=== PATIENT | male | born 1940 | race Caucasian/White ===

== ENCOUNTER 2017-09-29 07:26 | Day surgery (SDC) | payer MEDICARE, OTHER, SELFPAY ==
[2017-09-29] VITALS (8 sets, daily range): BP systolic 92–164; BP diastolic 47–107; PULSE 61–69; RESP 16; TEMP 36.2–36.6; O2SAT 97–100; BMI 24.5
--- NOTE | 2017-09-29 08:52 | PCM.OPRPT ---
Problem List (1) Screening for intestinal cancer Status: Acute Report of Operation Date of Procedure: 09/29/17 Pre-Operative Diagnosis: Family history of colon cancer in his father Post-Operative Diagnosis: Pancolonic diverticulosis. Grade 2 internal hemorrhoids Surgery/Procedure Performed:: Colonoscopy Description of Surgical Findings:: Timeout and informed consent was obtained. 77-year-old gentleman was taken to the endoscopy suite. He was placed in a left lateral decubitus position. Throughout the procedure in aliquots he received a total of 100 mg of Demerol and 5 mg of Versed is intravenous sedation. Digital rectal exam performed. Normal anal tone. Mild internal hemorrhoids. 2+ smooth uniform prostate. No mass lesions. Flexible colonoscope inserted the rectum advanced through a somewhat tortuous sigmoid colon the scope was then advanced through the splenic flexure there colon was rather elongated needed to slowly progress through the transverse colon and then with transabdominal pressure the scope was advanced to the cecum. Bowel prep was good. The cecum and ileocecal valve area was nicely achieved. The scope then was carefully withdrawn from the ascending transverse descending and sigmoid colon. Pancolonic diverticulosis was identified. I felt that I had good visualization of the bowel. There was tortuosity noted. The scope was withdrawn to the rectum retroflex the anorectal verge inspected mild hemorrhoidal changes noted no active bleeding. Excess fluid and air was aspirated free the procedure was completed with the patient tolerating it well. Impression Pancolonic diverticulosis. Based upon family history might consider follow-up colonoscopy at 5 years pending general health at that time. Cc: Dr. Clement The scope was inserted 0832. The cecum was reached at 0842. The procedure was completed at 0848. Lm Cervantes M.D., F.A.C.S. Type of Anesthesia:: IV Sedation
--- NOTE | 2017-10-02 10:09 | PCM.HP.STD ---
Problem List (1) Screening for intestinal cancer Status: Acute History of Present Illness Date of Admission: 09/29/17 The patient is a 77 year old M who presents for screening colonoscopy. The patient does have a family history of her father had colon cancer. He has had 2 previous colonoscopies both were unremarkable. His previous colonoscopy was January 10, [address] Luis Felipe Dickerson. 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 Diverticulosis. Recommendations for follow-up colonoscopy at 5 years. The patient otherwise is enjoying good health. He denies recent hospitalizations. He denies bright red blood per rectum or melena. No abdominal pain. No unexpected weight loss. Past Medical History Medical History: Medical History Screening for intestinal cancer (Acute) Z12.10 Allergies No Known Allergies Allergy (Verified 08/21/17 14:09) Home Medications: Ambulatory Orders Medication Instructions Recorded Cod Liver Oil 30 ml PO DAILY 12/11/15 Multivitamins,Therapeutic 1 tab PO DAILY 12/11/15 [Multivitamin] Sennosides/Docusate Sodium [Stool 1 ea PO DAILY 12/11/15 Softener-Laxative Tablet] aspirin 81 mg tablet,delayed 81 mg PO QDAY 08/21/17 release Surgical History: Surgical History (Last Updated 08/21/17 @ 14:07 by Rosa Garcias) H/O colonoscopy Z98.890 2012 S/P appendectomy Z90.49 S/P laparoscopic cholecystectomy Z90.49 S/P tonsillectomy Z90.89 Status post knee surgery Z98.890 Smoking Status: Never smoker Review of Systems Constitutional: Denies: Anorexia Eyes: Denies: Blurred vision Cardiovascular: Denies: Chest Pain Respiratory: Denies: Cough Gastrointestinal: Denies: Abdominal Pain Neurological: Denies: Balance problems Endocrine: Denies: Change in Body Habitus VTE Information - Inpt Only VTE Present on Admission: No - Physical Exam General: Alert, Oriented x3, Cooperative, No apparent distress HEENT: Atraumatic Oral: Moist Mucosa Neck: Supple Lungs: Clear to auscultation Cardiovascular: Regular rate, Regular Rhythm Abdomen: Bowel Sounds Present, Soft, Non Tender Extremities: No clubbing Skin: No rashes Musculoskeletal: No Tenderness to Palpation of Joints or Extremities Vital Signs Temp Pulse Resp BP Pulse Ox 97.2 F L 63 16 98/47 L 98 09/29/17 09:10 09/29/17 09:10 09/29/17 09:10 09/29/17 09:10 09/29/17 09:10 Oxygen Delivery Method Room Air Weight: 188 lb Body Mass Index (BMI) 24.5 Assessment/Plan All Active Problems Screening for intestinal cancer (Acute) 77-year-old gentleman who enjoys good health. I am recommending to him a colonoscopy with possible biopsy or polypectomy is indicated. He has had an opportunity to ask and have questions answered. I anticipate proceeding with monitored anesthesia care. He concurs and schedules appropriately. Lm Cervantes M.D., F.A.C.S. This was a delayed dictation as I was notified that the previous history and physical was outdated
== END 2017-09-29 09:40 | disposition home or self-care (01) ==
LOC: EN 07:27 → AC 07:27
PROVIDERS: Family Provider Family Medicine; PCP Family Medicine; Visit Provider Surgery
PROC: 0DJD8ZZ Inspection of Lower Intestinal Tract, Via Natural or Artificial Opening Endoscopic (ICD-10-PCS; CPT 45378; principal; 2017-09-29 08:25)
DX: Z12.11 Encounter for screening for malignant neoplasm of colon (principal); K57.90 Diverticulosis of intestine, part unspecified, without perforation or abscess without bleeding; K64.8 Other hemorrhoids; Z79.82 Long term (current) use of aspirin; Z79.899 Other long term (current) drug therapy; Z80.0 Family history of malignant neoplasm of digestive organs
CPT/HCPCS: G0105; 99152; 99153; J7120

== ENCOUNTER → 2020-01-07 06:20 | Outpatient (CLI) | payer MEDICARE, SELFPAY ==
[2019-12-23 09:37] VITALS: BMI 24.2
--- NOTE | 2020-01-07 06:23 | ECHOD_ITS ---
Reason For Study: CP Procedure This was a 2D Doppler, Color Flow transthoracic echocardiogram. Contrast injection was performed. Exam performed in department. Left Ventricle Normal LV size. Left ventricular systolic function is normal. The estimated ejection fraction is 65 %. No evidence for diastolic dysfunction. No regional wall motion abnormalities noted. Right Ventricle Normal RV size. Normal systolic function. Atria Normal left atrium. Normal right atrium. Hypermobile atrial septum. Bubble contrast study negative for right to left interatrial shunt. Mitral Valve There is no mitral annular calcification. Mild diffuse mitral valve thickening. Mild mitral valve prolapse, posterior leaflet. Mild (1+) mitral valve insufficiency. Tricuspid Valve Normal tricuspid valve. Mild tricuspid valve insufficiency. Right ventricular systolic pressure estimated to be 24 mmHg. Aortic Valve Trisinus/trileaflet aortic valve. Normal aortic valve. Pulmonic Valve The pulmonic valve is not well visualized. Trivial pulmonic valve insufficiency. Great Vessels Normal sized aortic root. Pericardium/Pleural No pericardial effusion. Medication 22 gauge I.V. with prn adaptor inserted into right arm. Performed a rapid injection of agitated mix of 9 cc saline and 1cc air to assess for atrial septal defect. MMode/2D Measurements & Calculations LVIDd: 4.6 cm IVSd: 1.2 cm Ao root diam: 3.3 cm LVIDs: 2.6 cm LVPWd: 1.2 cm FS: 43.2 % LAV(MOD-bp): 39.6 ml LA A4 area: 13.4 cm2 LA dimension(2D): 3.4 cm LAV(MOD-bp) Indexed: 19.1 ml/m2 LAV(MOD-sp2): 43.2 ml LAV(MOD-sp4): 30.8 ml RA A4 area: 16.3 cm2 Time Measurements MV dec time: 0.18 sec Doppler Measurements & Calculations MV E max kavon: 43.7 cm/sec Lat Peak E' Kavon: 5.4 cm/sec Med Peak E' Kavon: 5.4 cm/sec MV A max kavon: 93.3 cm/sec E/E' lat: 8.1 E/E' med: 8.2 MV E/A: 0.47 MV V2 max: 95.4 cm/sec MV P1/2t max kavon: 50.7 cm/sec Ao V2 max: 110.0 cm/sec MV max P.6 mmHg MV P1/2t: 91.4 msec Ao max P.8 mmHg MV V2 mean: 47.4 cm/sec MV dec slope: 162.4 cm/sec2 MV mean P.1 mmHg MV V2 VTI: 19.6 cm MVA(P1/2t): 2.4 cm2 LV V1 max: 96.0 cm/sec PA V2 max: 99.2 cm/sec TR max kavon: 227.6 cm/sec LV V1 max P.7 mmHg TR max P.8 mmHg Interpretation Summary Left ventricular systolic function is normal. The estimated ejection fraction is 65 %. Mild diffuse mitral valve thickening. Mild mitral valve prolapse, posterior leaflet Mild (1+) mitral valve insufficiency. Mild tricuspid valve insufficiency. Trivial pulmonic valve insufficiency. Hypermobile atrial septum. Bubble contrast study negative for right to left interatrial shunt. Right ventricular systolic pressure estimated to be 24 mmHg. No evidence for diastolic dysfunction. Ordering Physician: Sonu Carl Referring Physician: KEN BUTLER Performed By: Jude Fleming RCS
--- NOTE | 2020-01-07 07:47 | STRESSREP_ITS ---
Stress Test Report Date: 01-07-2020 Procedure: Exercise tolerance test/imaging study Indications: Chest pain/precordial chest pain/left-sided chest pain Consent: Per the patient Procedure: The patient exercised on a Catrachito protocol for 6 minutes completing Stage II achieving a peak heart rate of 155 bpm (110% predicted maximal heart rate) with a peak blood pressure 188/94 mmHg and a peak MET capacity of 7 METs. The baseline ECG demonstrated sinus rhythm. The peak exercise ECG demonstrated somatic/motion artifact with no obvious ECG changes. There were no cardiac dysrhythmias pretest, during exercise, or recovery. The functional capacity was considered good. There was no complaint of chest discomfort during exercise or recovery. The examination was discontinued secondary to dyspnea. Impression: 1. Technically adequate (percent predicted maximal heart rate greater than 85%) exercise tolerance test 2. Peak exercise ECG somatic/motion artifact with no obvious ECG changes 3. There were no cardiac dysrhythmias pretest, during exercise, or recovery 4. Nuclear images pending Myocardial perfusion imaging study: Technique: The patient was injected with 11.3 mCi of technetium 99m Cardiolite and subsequently rest SPECT Cardiolite nuclear imaging was obtained in the horizontal long, vertical long, and short axis views. The patient exercised on a Catrachito protocol for 6 minutes completing Stage II achieving a peak heart rate of 155 bpm (110% predicted maximal heart rate) with a peak blood pressure 188/94 mmHg and a peak MET capacity of 7 METs. The patient was injected with 33.8 mCi of technetium 99m Cardiolite and subsequently stress SPECT Cardiolite nuclear imaging was obtained in the horizontal long, vertical long, and short axis views. A gated Cardiolite study at peak stress was obtained. Interpretation: Rest and stress SPECT Cardiolite nuclear imaging status post realignment, normalization, and attenuation correction, demonstrates the appearance of relative uniform tracer uptake and myocardial perfusion appearing within normal limits. There is end systolic thickening and brightening. The gated Cardiolite study demonstrates myocardial thickening and inward wall motion. The reported LVEF is 76%. Impression: 1. Rest and stress SPECT Cardiolite nuclear imaging demonstrate relative uniform tracer uptake and myocardial perfusion appearing within normal limits. 2. The gated Cardiolite study reports an LVEF of 76%. This note was generated with [employer] software. It may contain incorrect words, spelling, and punctuation that were not noted in checking the note before signing.
== END ==
PROVIDERS: PCP Student in an Organized Health Care Education/Training Program; Referring Provider Internal Medicine Cardiovascular Disease; Visit Provider Internal Medicine Cardiovascular Disease
DX: R07.9 Chest pain, unspecified (principal); R07.2 Precordial pain; I34.1 Nonrheumatic mitral (valve) prolapse; I27.20 Pulmonary hypertension, unspecified; E78.2 Mixed hyperlipidemia
CPT/HCPCS: 78452; 93017; 93306; A9500; A4216

== ENCOUNTER → 2020-06-25 16:03 | Outpatient (CLI) | payer MEDICARE, SELFPAY ==
[2019-12-23 09:37] VITALS: BMI 24.2
[2020-06-25 18:23] LABS: PSA,Total- Diagnostic 3.03 ng/mL (0.0-4.0)
== END ==
PROVIDERS: PCP Student in an Organized Health Care Education/Training Program; Referring Provider Nurse Practitioner Adult Health; Visit Provider Nurse Practitioner Adult Health
DX: N40.3 Nodular prostate with lower urinary tract symptoms (principal)
CPT/HCPCS: 36415; 84153

== ENCOUNTER → 2021-01-05 07:02 | Outpatient (CLI) | payer MEDICARE, SELFPAY ==
--- NOTE | 2021-01-05 08:44 | STRESSREP_ITS ---
Stress Test Report Date: 01-05-2021 Procedure: Exercise tolerance test/imaging study Indications: Chest pain; mitral valve prolapse; hyperlipidemia Consent: Per the patient Procedure: The patient exercised on a Catrachito protocol for 6 minutes and 30 completing Stage II and 30 seconds of Stage III achieving a peak heart rate of 141 bpm (101% predicted maximal heart rate) with a peak blood pressure 182/78 mmHg and a peak MET capacity of 8 METs. The baseline ECG demonstrated normal sinus rhythm. The peak exercise ECG demonstrated somatic/motion artifact with no obvious ECG changes. There were no cardiac dysrhythmias pretest, during exercise, or recovery. The functional capacity was considered good. There was no complaint of chest discomfort during exercise or recovery. The examination was discontinued secondary to dyspnea. Impression: 1. Technically adequate (percent predicted maximal heart rate greater than 85%) exercise tolerance test 2. Peak exercise ECG with somatic/motion artifact with no obvious ECG changes 3. There were no cardiac dysrhythmias pretest, during exercise, or recovery 4. Nuclear images pending Myocardial perfusion imaging study: Technique: The patient was injected with 11.9 mCi of technetium 99m Cardiolite and subsequently rest SPECT Cardiolite nuclear imaging was obtained in the horizontal long, vertical long, and short axis views. The patient exercised on a Catrachito protocol for 6 minutes and 30 completing Stage II and 30 seconds of Stage III achieving a peak heart rate of 141 bpm (101% predicted maximal heart rate) with a peak blood pressure 182/78 mmHg and a peak MET capacity of 8 METs. The patient was injected with 33.6 mCi of technetium 99m Cardiolite and subsequently stress SPECT Cardiolite nuclear imaging was obtained in the horizontal long, vertical long, and short axis views. A gated Cardiolite study at peak stress was obtained. Interpretation: Rest and stress SPECT Cardiolite nuclear imaging status post realignment, normalization, and attenuation correction, demonstrates the appearance of an area of diminished myocardial perfusion/tracer uptake in portions of the basal inferoseptal/inferior segments which appear to be somewhat more prominent following stress as opposed to rest. There is end systolic thickening and brightening. The gated Cardiolite study demonstrates myocardial thickening and inward wall motion. The reported LVEF is 71%. Impression: 1. Rest and stress SPECT Cardiolite nuclear imaging demonstrate myocardial perfusion changes potentially compatible with an area of previous myocardial injury/infarction involving portions of the basal inferior septal/inferior segments with post stress images potentially compatible with an element of laura- infarct related myocardial ischemia, however, contribution from soft tissue attenuation/artifact cannot necessarily excluded. 2. The gated Cardiolite study reports an LVEF of 71%. This note was generated with [employer] software. It may contain incorrect words, spelling, and punctuation that were not noted in checking the note before signing.
== END ==
PROVIDERS: PCP Student in an Organized Health Care Education/Training Program; Referring Provider Nurse Practitioner Gerontology; Visit Provider Nurse Practitioner Gerontology
DX: R07.9 Chest pain, unspecified (principal); I34.1 Nonrheumatic mitral (valve) prolapse; E78.5 Hyperlipidemia, unspecified
CPT/HCPCS: 78452; 93017; A9500

== ENCOUNTER 2021-07-06 11:34 | Observation (INO) | payer MEDICARE, SELFPAY ==
[2021-06-30 14:58] LABS: Absolute Lymphocyte Count 2.74 X10^3/uL (0.83-4.51); Absolute Neutrophil Count 2.9 X10^3/uL (2.0-7.7); Basophil# 0.04 X10^3/uL; Basophil% 0.6 % (0-1); Eosinophil# 0.09 X10^3/uL; Eosinophils% 1.4 % (0-5); Hematocrit 41.5 % (40-54); Hemoglobin 13.5 g/dL (13.0-16.5); Lymphocyte # 2.74 X10^3/ul (0.83-4.51); Lymphocyte % 43.4 % (19-41); Mean Corp Hgb Conc 32.5 g/dL (32-36); Mean Corpuscular Hgb 30.5 pg (27.0-32.0); Mean Corpuscular Volume 93.7 fL (80-94); Mean Platelet Vol. 9.3 fl (6.2-12.0); Monocyte# 0.51 X10^3/uL; Monocyte% 8.1 % (0-10); NRBC Flagged by Analyzer 0 % (0-5); Neutrophil # 2.91 X10^3/uL (2.7-7.7); Neutrophil % 46.2 % (47-70); Platelet Count 206 K/mm3 (150-450); RBC Distribution Width CV 13.5 % (11.6-14.6); RBC Distribution Width SD 46.3 fl (35.1-43.9); Red Blood Count 4.43 M/mm3 (4.6-6.2); White Blood Count 6.3 K/mm3 (4.4-11.0)
[2021-06-30 15:09] LABS: International Normalized Ratio 1.2; Partial Thromboplast Time 31.1 Seconds (24.1-36.2); Prothrombin Time (Protime)PT. 14.5 SECONDS (11.7-14.9)
[2021-06-30 15:24] LABS: Anion Gap 4 (5-15); BUN 21 mg/dL (7-18); BUN/Creat Ratio 20.8 RATIO (10-20); Calcium,Total 8.8 mg/dL (8.5-10.1); Chloride 107 mmol/L (98-107); Creatinine, Serum 1.01 mg/dL (0.70-1.30); EST Glomerular Filtration Rate 75 mL/min (>60); Est Glom Filt Rate - Afr Amer 91 mL/min (>60); Glucose 108 mg/dL (74-106); Potassium 4.2 mmol/L (3.5-5.1); Sodium Level 142 mmol/L (136-145)
[2021-07-05 09:18] VITALS: BMI 23.7
--- NOTE | 2021-07-05 13:04 | HP.PCM_ITS ---
History and Physical Date of Admission: 07/06/21 [facility] [address] [place] [address] [phone] OFFICE VISITDate of Service: 06/30/21 MR#:[id number]: DAX CAPELLAN LRep #:[id number] Provider: BRIGHT Grayson/Sex: 81/M [facility] HPI History of Present Illness Surgical H&P: Yes Details: This is an 81-year-old white male who presents today for outpatient cardiovascular follow-up of an abnormal stress nuclear imaging study based upon concerns of an abnormal ECG superimposed his previous history of MVP/MR. He has a history of precordial chest discomfort superimposed upon a history of mitral valve prolapse and a report of pulmonary hypertension as well as hyperlipidemia. He has previously been followed by Dr. Van Shukla during which time he has undergone noninvasive studies including transthoracic echocardiogram and an exercise tolerance test/nuclear imaging study as well as he states a remote diagnostic cardiac catheterization performed in the at [facility] in [place], [place]. Based upon his most recent noninvasive studies performed in July 2017 he had a transthoracic echocardiogram which stated that his left ventricle was normal with an LVEF of 55 to 60% with the mi tral valve having mild thickening and systolic bowing and systolic anterior motion and mild contractile dysfunction of the papillary muscles with mild MR, the aortic valve being sclerotic, and the RV systolic pressure being reported at 22 mmHg. At that time a previous exercise tolerance test/nuclear imaging study was considered by both ECG and myocardial perfusion to be negative for myocardial is chemia. It appears he had previous similar studies performed in 2009. 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 There is also a comment of left atrial enlargement. At that time as well in 2009 he had an exercise tolerance test/nuclear imaging study which per the myocardial perfusion report stated that there was a small inferior wall scar with no reversible ischemia and evidence of right ventricular strain suggestive of elevated right ventricular pressures with LV having an EF of 66%. He has remained very active. He states he needs to learn to slow down for his age. However he states that a muscle that is not in use atrophies thus he tries to keep his muscles active by doing push-ups and remaining active outside. He states with his activity including recently raking leaves that he is noticed that he gets a chest discomfort which he just describes as a pain as well as he can feel somewhat more short of breath. He states when walking the stairs, which he does routinely, he notices he is getting more short of breath than he had in the past. He has not had any orthopnea or PND or ongoing peripheral pitting edema. There has been no near syncope or syncope. He did have an exercise tolerance test performed recently. The results are noted below. They appear to be somewhat different from his previous studies. He states that he has had a few episodes of chest discomfort and shortness of breath with exertion and at rest since his last office visit. He denies palpitations. He denies Orthopnea, and PND. He does not have bleeding issues; no blood in urine, stool or nosebleeds. He denies any decrease in energy level, myalgias, or claudication. He does not have edema, or sudden weight gain. He denies dizziness, lightheadedness, syncopal or near syncopal episodes, and headaches. Intake Vital Signs 06/30/21 15:16 Height 6 ft 1 in Weight: 180 lb BMI 23.7 BP 129/79 H Blood Pressure Location Lt brachial Position Sitting Respiration 16 Pulse 65 Pulse Source Monitor Temp 97.4 F L Temperature Source Oral Pulse Oximetry (%) 99 Oxygen Delivery Method room air Intake Visit Reasons: UPDATE H&P FOR PFM CATH Build Automation Engineer Required: No Accompanied by: Is patient in pain?: No Allergies No Known Allergies Allergy (Verified 06/30/21 15:39) Medications multivitamin 1 tab PO DAILY 12/20/19 [History Confirmed 06/30/21] aspirin 81 mg tablet,delayed release 81 mg PO DAILY 12/23/19 [History Confirmed 06/30/21] ascorbic acid (vitamin C) 500 mg tablet 500 mg PO DAILY 12/21/20 [History Confirmed 06/30/21] cholecalciferol (vitamin D3) 50 mcg (2,000 unit) tablet 50 mcg PO DAILY 12/21/20 [History Confirmed 06/30/21] turmeric root extract 500 mg capsule 500 mg PO DAILY 12/21/20 [History Confirmed 06/30/21] clopidogrel 75 mg tablet 75 mg PO DAILY #30 tab 01/07/21 [Rx Confirmed 06/30/21] calcium carbonate 300 mg (750 mg) chewable tablet 300 mg PO DAILY tab 06/30/21 [History Confirmed 06/30/21] coconut oil 1,000 mg capsule 1 mg PO DAILY cap 06/30/21 [History Confirmed 06/30/21] omega-3 fatty acids 1,000 mg capsule 1,000 mg PO DAILY 06/30/21 [History Confirmed 06/30/21] PFSH Medical History (Reviewed 06/30/21 @ 15:39 by Vannessa Rush TONGUE AND GROOVE MACHINE OPERATOR, TONGUE AND GROOVE MACHINE OPERATOR-C) Abnormal stress test Mixed hyperlipidemia Nonrheumatic mitral (valve) prolapse Pulmonary hypertension Screening for intestinal cancer Surgical History H/O colonoscopy History of appendectomy History of laparoscopic cholecystectomy History of tonsillectomy History of transurethral resection of prostate Status post knee surgery Family History Mother Arthritis Alzheimer disease Father Cancer Social History Smoking Status: Never smoker alcohol intake: never substance use type: does not use caffeine: No ROS Const Const: Negative for fatigue, weakness, fever(s), headache(s), chills, frequent falls, weight gain or weight loss Eyes Eyes: Negative for blind spots, loss of peripheral vision, transient loss of vision, blurry vision, change in vision, double vision, floaters or tunnel vision ENT ENT: Negative for headache(s), dizziness, Nosebleed/epistaxis, balance problems or neck pain Cardio Chest Pain: Yes Character: sharp Onset: at rest and exercise Location: left chest Duration: brief Exacerbation: exercise and rest Palpitations: No Edema: None Muscle aches with walking: None Resp Respiratory: Positive for SOB with activity; Negative for SOB at rest or SOB orthopnea\SOB lying down GI GI: Negative nausea, vomiting, heartburn, bloating, vomiting blood/hematemesis, bright, red blood in stools or black,tarry stools Musc Musc: Negative for muscle aches/ myalgia, muscle weakness, joint pain or balance problems Neuro Neuro: Negative for dizziness, lightheadedness, near syncope, syncope, orthostatic symptoms, frequent falls, headache(s), weakness, blurry vision or double vision Sharif Hematologic/Lymphatic: Negative for easy bleeding or easy bruising Endo Endo: Negative for fatigue Cardiology Exam Const Appearance: cooperative and no acute distress Nutritional Appearance: thin Orientation: alert and oriented x3 Head Head: normal to inspection Ears: hearing grossly normal bilaterally Nose: external nose normal Face and Sinus: face symmetric Eyes General: appearance normal, both eyes and all related structures Eyelids: eyelids normal Conjunctivae: conjunctivae normal Pupils: PERRL and pupil size EOM: EOM intact bilaterally Neck Neck: normal visual inspection Carotids: Negative bruit Chest Chest inspection: normal inspection of the chest and normal respiratory effort Auscultation: Bilateral: Clear to Auscultation Cardio Palpation: normal PMI Rate: regular rate Rhythm: regular rhythm Heart sounds: S1 normal and S2 normal; Negative rub, gallop or murmur GI GI: normal to inspection and soft; Negative no hepatosplenomegaly Neuro General: patient alert, patient oriented x3 and CN's II-XI intact bilaterally Skin Skin: no rashes or lesions noted Extremities Pulses: Normal: Right Posterior Tibial Pulse, Left Posterior Tibial Pulse, Right Radial Pulse and Left Radial Pulse Lower Extremity Edema: None: Bilateral Psych Psychological: normal affect Supplemental Info Supplemental Information Echocardiogram 01/07/2020: Interpretation Summary Left ventricular systolic function is normal. The estimated ejection fraction is 65 %. Mild diffuse mitral valve thickening. Mild mitral valve prolapse, posterior leaflet Mild (1+) mitral valve insufficiency. Mild tricuspid valve insufficiency. Trivial pulmonic valve insufficiency. Hypermobile atrial septum. Bubble contrast study negative for right to left interatrial shunt. Right ventricular systolic pressure estimated to be 24 mmHg. No evidence for diastolic dysfunction. Stress Test 01/07/2020: Procedure: Exercise tolerance test/imaging study Indications: Chest pain/precordial chest pain/left-sided chest pain Consent: Per the patient Procedure: The patient exercised on a Catrachito protocol for 6 minutes completing Stage II achieving a peak heart rate of 155 bpm (110% predicted maximal heart rate) with a peak blood pressure 188/94 mmHg and a peak MET capacity of 7 METs. The baseline ECG demonstrated sinus rhythm. The peak exercise ECG demonstrated somatic/motion artifact with no obvious ECG changes. There were no cardiac dysrhythmias pretest, during exercise, or recovery. The functional capacity was considered good. There was no complaint of chest discomfort during exercise or recovery. The examination was discontinued secondary to dyspnea. Impression: 1. Technically adequate (percent predicted maximal heart rate greater than 85%) exercise tolerance test 2. Peak exercise ECG somatic/motion artifact with no obvious ECG changes 3. There were no cardiac dysrhythmias pretest, during exercise, or recovery 4. Nuclear images pending Myocardial perfusion imaging study: Technique: The patient was injected with 11.3 mCi of technetium 99m Cardiolite and subsequently rest SPECT Cardiolite nuclear imaging was obtained in the horizontal long, vertical long, and short axis views. The patient exercised on a Catrachito protocol for 6 minutes completing Stage II achieving a peak heart rate of 155 bpm (110% predicted maximal heart rate) with a peak blood pressure 188/94 mmHg and a peak MET capacity of 7 METs. The patient was injected with 33.8 mCi of technetium 99m Cardiolite and subsequently stress SPECT Cardiolite nuclear imaging was obtained in the horizontal long, vertical long, and short axis vi ews. A gated Cardiolite study at peak stress was obtained. Interpretation: Rest and stress SPECT Cardiolite nuclear imaging status post realignment, normalization, and attenuation correction, demonstrates the appearance of relative uniform tracer uptake and myocardial perfusion appearing within normal limits. There is end systolic thickening and brightening. The gated Cardiolite study demonstrates myocardial thickening and inward wall motion. The reported LVEF is 76%. Impression: 1. Rest and stress SPECT Cardiolite nuclear imaging demonstrate relative uniform tracer uptake and myocardial perfusion appearing within normal limits. 2. The gated Cardiolite study reports an LVEF of 76%. Stress Test Report Date: 01-05-2021 Procedure: Exercise tolerance test/imaging study Indications: Chest pain; mitral valve prolapse; hyperlipidemia Consent: Per the patient Procedure: The patient exercised on a Catrachito protocol for 6 minutes and 30 completing Stage II and 30 seconds of Stage III achieving a peak heart rate of 141 bpm (101% predicted maximal heart rate) with a peak blood pressure 182/78 mmHg and a peak MET capacity of 8 METs. The baseline ECG demonstrated normal sinus rhythm. The peak exercise ECG demonstrated somatic/motion artifact with no obvious ECG changes. There were no cardiac dysrhythmias pretest, during exercise, or recovery. The functional capacity was considered good. There was no complaint of chest discomfort during exercise or recovery. The examination was discontinued secondary to dyspnea. Impression: 1. Technically adequate (percent predicted maximal heart rate greater than 85%) exercise tolerance test 2. Peak exercise ECG with somatic/motion artifact with no obvious ECG changes 3. There were no cardiac dysrhythmias pretest, during exercise, or recovery 4. Nuclear images pending Myocardial perfusion imaging study: Technique: The patient was injected with 11.9 mCi of technetium 99m Cardiolite and subsequently rest SPECT Cardiolite nuclear imaging was obtained in the horizontal long, vertical long, and short axis views. The patient exercised on a Catrachito protocol for 6 minutes and 30 completing Stage II and 30 seconds of Stage III achieving a peak heart rate of 141 bpm (101% predicted maximal heart rate) with a peak blood pressure 182/78 mmHg and a peak MET capacity of 8 METs. The patient was injected with 33.6 mCi of technetium 99m Cardiolite and subsequently stress SPECT Cardiolite nuclear imaging was obtained in the horizontal long, vertical long, and short axis views. A gated Cardiolite study at peak stress was obtained. Interpretation: Rest and stress SPECT Cardiolite nuclear imaging status post realignment, normalization, and attenuation correction, demonstrates the appearance of an area of diminished myocardial perfusion/tracer uptake in portions of the basal inferoseptal/inferior segments which appear to be somewhat more prominent following stress as opposed to rest. There is end systolic thickening and brightening. The gated Cardiolite study demonstrates myocardial thickening and inward wall motion. The reported LVEF is 71%. Impression: 1. Rest and stress SPECT Cardiolite nuclear imaging demonstrate myocardial perfusion changes potentially compatible with an area of previous myocardial injury/infarction involving portions of the basal inferior septal/inferior segments with post stress images potentially compatible with an element of laura- infarct related myocardial ischemia, however, contribution from soft tissue attenuation/artifact cannot necessarily excluded. 2. The gated Cardiolite study reports an LVEF of 71%. Labs: No Data to Display Diagnostics: Electrocardiogram Echocardiogram Stress Test NM Stress Test Pulmonary: No Data to Display Assessment and Plan Assessment and Plan (1) Abnormal stress test: Status: Acute Orders: Orders: 12 Lead EKG performed by [facility] Today Plan - Vannessa Rush TONGUE AND GROOVE MACHINE OPERATOR, TONGUE AND GROOVE MACHINE OPERATOR-C: Patients most recent stress test from 01/05/2021 was abnormal. His EKG from today demonstrates Sinus Rhythm, nonspecific T-abnormality, HR 67bpm. Based on his current symptoms, and abnormal stress test, he will undergo a cardiac catheterization on July 06, 2021. Instructions given to patient, and he verbalizes understanding. (2) Precordial chest pain: Status: Acute Lokesh Rush TONGUE AND GROOVE MACHINE OPERATOR, TONGUE AND GROOVE MACHINE OPERATOR-C: Patient continues to have chest discomfort as well as exertional shortness of breath/dyspnea. Based upon his recent symptoms, and stress test findings, he will undergo a cardiac catheterization to evaluate this. At this time, he will continue with his current medical therapy, along with aggressive risk factor and lifestyle modifications. (3) Nonrheumatic mitral (valve) prolapse: Status: Chronic Lokesh Rush TONGUE AND GROOVE MACHINE OPERATOR, TONGUE AND GROOVE MACHINE OPERATOR-C: Patient has a history of nonrheumatic mitral valve prolapse. His most recent echocardiogram from 01/07/2020 demonstrated mild diffuse mitral valve thickeni ng, mild mitral valve prolapse, posterior leaflet, and mild (1+) mitral valve insufficiency. He will undergo a cardiac catheterization, which this will be evaluated at that time. (4) Mixed hyperlipidemia: Status: Chronic Lokesh Rush TONGUE AND GROOVE MACHINE OPERATOR, TONGUE AND GROOVE MACHINE OPERATOR-C: Patient has a history of hyperlipidemia. His PCP monitors this. He will continue aggressive risk factor and lifestyle modifications. (5) SOB (shortness of breath) on exertion: Status: Acute Lokesh Rush TONGUE AND GROOVE MACHINE OPERATOR, TONGUE AND GROOVE MACHINE OPERATOR-C: He does have complaints of shortness of breath with exertion. He will undergo a cardiac catheterization to further evaluate this. Plan Details Additional Comments: Patient will follow up in 3 months, or sooner if needed. Thank you for allowing me to participate in the care of your patient. Please d on't hesitate to call if any issues arise. This note was generated using a voice recognition system and there may be incorrect words, spelling or punctuation that were not noted when reviewing the office note prior to saving. Follow Up: 3 Months (TONGUE AND GROOVE MACHINE OPERATOR/PA) COVID (Procedure Consent) Procedure Criteria Procedure Criteria: Yes Elective The surgeon/proceduralist and patient have discussed in detail the risk of exposure to and/or potential harm posed by the COVID-19 virus with having a surgery/procedure at this time versus the risk of delaying the surgery/procedure. It is not possible to know either the risk of delaying the surgery or procedure or chance of getting an infection with perfect accuracy, but a joint decision was made between the patient and the surgeon/proceduralist to proceed at this time with the scheduled surgery/procedure as indicated on the consent form. Coding Level of Care Code Off vis,est,level 3 Diagnoses Abnormal stress test R94.39 Precordial chest pain R07.2 Nonrheumatic mitral (valve) prolapse I34.1 Mixed hyperlipidemia E78.2 SOB (shortness of breath) on exertion R06.02 Coding Level of Care Code Off vis,est,level 3 Diagnoses Abnormal stress test R94.39 Precordial chest pain R07.2 Nonrheumatic mitral (valve) prolapse I34.1 Mixed hyperlipidemia E78.2 SOB (shortness of breath) on exertion R06.02 05 1653<Electronically signed by Vannessa Rush TONGUE AND GROOVE MACHINE OPERATOR TONGUE AND GROOVE MACHINE OPERATOR-C>Date Vannessa Rush TONGUE AND GROOVE MACHINE OPERATOR TONGUE AND GROOVE MACHINE OPERATOR-C 06/30/21 1712<Electronically signed by Sonu Carl MD>Cosigner Signature:Date (if applicable)Sonu Carl MD CC: Dr. Benson Mahoney, DO ~ Assessment & Plan Addt'l Comments I have re-examined the patient. There are no clinical changes since date of exam
[2021-07-06] VITALS: PULSE 63
--- NOTE | 2021-07-06 09:58 | CL.D_ITS ---
Patient Name: DAX CAPELLAN Study Date: 07/06/2021 Performing: Sonu Carl MD Ht: 72.83 inches 185 cm : 1940 Wt: 180.78 lbs 82 kg Age: 81 Gender: male BSA: 2.06 PROCEDURE(S) PERFORMED DC01-([id number])LHC/COR/LV IC12-([id number])EDITH W/WO PTCA, SINGLE CORONARY ARTERY CLINICAL PROFILE AND INDICATIONS Indications: Worsening Angina, Suspected CAD Heart Failure: None Stress/Imaging Date: 01/05/2021tress Test with SPECT MPI: Positive Intermediate Risk Angina Classification Anginal Classification w/in 2 Weeks: CCS III CAD Presentations: Other: worsening angina; dyspnea on exertion CONCLUSIONS Elevated Left Ventricular End Diastolic Pressure Normal LV size, wall motion,and systolic function LVEF: by LV gram 65 % [place] Multivessel CAD Mitral Valve Prolapse Mild (mitral valve scalloping c/w mitral valve prolapse: mild) Case reviewed / discussed with Dr. Zheng of interventional cardiology RECOMMENDATIONS Medical therapy Referred for immediate PCI DESCRIPTION OF PROCEDURE The patient arrived to the procedure lab. The risks and benefits of the procedure as well as a full d escription of our services here and current unavailability of surgical backup were fully explained to the patient and/or their significant other prior to the catheterization. The Timeout was completed, verifying the correct patient and procedure. The patient's procedural site was prepped and draped in the usual fashion. Local anesthetic was given subcutaneously to right radial region with Lidocaine 2% . Using a modified Seldinger technique, arterial access was obtained via the right radial artery, a 6 Fr sheath was inserted. Left Coronary Artery selective angiography was performed in multiple views u sing a 5 Fr. 4.0 [place] catheter. Right Coronary Artery selective angiography was then performed in mu ltiple views using a 5 Fr. 4.0 [place] catheter. Left Ventriculography was performed in NORRIS projection using a 5 Fr. Pigtail catheter. LV to AO pullback pressures were then recorded.The arterial sheath was pulled and a TR Band was applied for hemostasis CORONARY ANGIOGRAPHY DOMINANCE: Right Dominant LEFT HEART ASSESSMENT Left Ventricular Ejection Fraction: by LV Gram 65 % Normal LV wall motion Elevated Left Ventricular End Diastolic Pressure LVEDP: 32 mmHg LEFT MAIN: Angiographically normal LEFT ANTERIOR DESCENDING ARTERY: OSTIAL LAD: 25 % Stenosis PROX LAD: ectatic and aneurysmal appearing with 25 % Stenosis MID LAD: Mild luminal irregularities DISTAL LAD: Mild luminal irregularities CIRCUMFLEX ARTERY: Mild luminal irregularities PROX CIRC: 25 % Stenosis OM 1: Proximal - 50 % Stenosis (small - moderate caliber vessel) RIGHT CORONARY ARTERY: Mild luminal irregularities PROX RCA: 25 % Stenosis MID RCA: 25 % Stenosis DISTAL RCA: 75 % Stenosis VALVE FINDINGS: mitral valve scalloping c/w mitral valve stenosis: mild AORTIC ROOT: Angiographically normal COMPLICATIONS No Complications PROCEDURE MEDICATIONS Fentanyl 50 mcg IV Versed 1 mg IV Oxygen: 2 L/min via nasal cannula Heparin given IA 07/06/2021 09:04:46 Heparin 3000 unit(s) IV 07/06/2021 09:24:43 Verapamil 2.5mg, Ntg 100mcgs, 3000 units of Heparin given IA 07/06/2021 09:04:46 SUMMARY OF HEMODYNAMIC DATA Time AIR REST ECG 07:53:08 Art 156/72 (103) 08:54:47 AO 150/93 (122) SA 09:07:38 LV 161/-5, 30 09:16:45 LV 172/-9, 32 09:16:53 LV 168/-5, 31 09:17:38 LV 175/-7, 35 09:17:46 LVp 170/-5, 36 09:17:49 RM AIR REST 09:55:50 Signed By Sonu Carl MD On 07/06/2021 9:57:35 AM Sonu Carl MD
--- NOTE | 2021-07-06 10:15 | EKG12_ITS ---
Test Reason : Blood Pressure : / mmHG Vent. Rate : 066 BPM Atrial Rate : 066 BPM P-R Int : 172 ms QRS Dur : 080 ms QT Int : 418 ms P-R-T Axes : 053 040 079 degrees QTc Int : 438 ms Normal sinus rhythm Nonspecific T wave abnormality Abnormal ECG When compared with ECG of 11-DEC-2015 07:51, Nonspecific T wave abnormality now evident in Lateral leads Confirmed by SANTOSH SALAZAR, MIGNON ([id number]), digital editor AGNIESZKA BERGER ([id number]) on 07/07/2021 2:10:34 PM Referred By: Sonu Carl Confirmed By:MIGNON FROST MD
--- NOTE | 2021-07-06 10:57 | CL.I_ITS ---
Patient Name: DAX CAPELLAN Study Date: 07/06/2021 Performing: Elvis Zheng MD Ht: 72.83 inches 185 cm : 1940 Wt: 180.78 lbs 82 kg Age: 81 Gender: male BSA: 2.06 PROCEDURE(S) PERFORMED IC12-(90332/[id number])EDITH W/WO PTCA, SINGLE CORONARY ARTERY CLINICAL PROFILE AND CO-MORBIDITIES Indications: Worsening Angina, Suspected CAD Heart Failure: None Stress/Imaging Date: 01/05/2021 Stress Test with SPECT MPI: Positive Intermediate Risk Angina Classification Anginal Classification w/in 2 Weeks: CCS III CAD Presentations: Other: worsening angina; dyspnea on exertion CONCLUSIONS Successful EDITH to dRCA RECOMMENDATIONS DESCRIPTION OF PROCEDURE The patient arrived to the procedure lab. The risks and benefits of the procedure as well as a full d escription of our services here and current unavailability of surgical backup were fully explained to the patient and/or their significant other prior to the catheterization. The Timeout was completed, verifying the correct patient and procedure. The patient's procedural site was prepped and draped in the usual fashion. Local anesthetic was given subcutaneously to right radial region with Lidocaine 2% Using a modified Seldinger technique,arterial access was obtained via the right radial artery, a 6Fr sheath was inserted. Left Coronary Artery selective angiography was performed in multiple views usin g a 5 Fr. 4.0 [place] catheter. Right Coronary Artery selective angiography was then performed in multi ple views using a 5 Fr. 4.0 [place] catheter. Left Ventriculography was performed in NORRIS projection usi ng a 5 Fr. Pigtail catheter. LV to AO pullback pressures were then recorded.The images were reviewed and options discussed. A decision was then made to proceed with an Intervention, IVUS o r other adjunct procedure. JR 4.0 Guide catheter was inserted and engaged into the RCA. BMW Guide wire was advanced to the R ight PDA. 3.5 x 12 Emerge Balloon catheter was advanced across lesion in the right coronary, distal. PTCA balloon inflated at 6 atms for 5 secs. PTCA balloon inflated at 6 atms for 5 secs. PTCA balloon inflated at 12 atms for 12 secs. Orsiro 4.0 x 15 Drug Eluting stent was inserted. Drug Eluting stent was advanced across the lesion in the right coronary, distal. Angiogram performed post balloon dilata tion. Angiogram performed pre stent deployment. Angiogram performed post stent deployment. The kermit rial sheath was pulled and a TR Band was applied for hemostasis. 12cc air inserted. INTERVENTION INFORMATION LESION SITE: RCA (Distal) Lesion Complexity: High/C, chronic total occlusion: No, lesion at bifurcation: No, thrombus present: No, lesion length: 14 mm, culprit lesion: Yes, Previously treated lesion: No Pre Stenosis: 80 % Pre intervention SUJIT flow: 3 PROCEDURE: Drug Eluting Stent with pre dilatation. Post Stenosis: 0 % Post intervention SUJIT flow: 3 Lesion Devices: Jeremiah Sci EMERGE MR 3.50x12 BALLOON Cardinal 6 Fr JR4 100cm Guide Catheter Arnold .014 BMW Dudley Straight 190cm Biotronik [facility] MR EDITH 4.0x15 COMPLICATIONS No Complications PROCEDURE MEDICATIONS Fentanyl 50 mcg IV Versed 1 mg IV Oxygen: 2 L/min via nasal cannula Heparin given IA 07/06/2021 09:04:46 Heparin 3000 unit(s) IV 07/06/2021 09:24:43 Verapamil 2.5mg, Ntg 100mcgs, 3000 units of Heparin given IA 07/06/2021 09:04:46 SUMMARY OF HEMODYNAMIC DATA Time AIR REST ECG 07:53:08 Art 156/72 (103) 08:54:47 AO 150/93 (122) SA 09:07:38 LV 161/-5, 30 09:16:45 LV 172/-9, 32 09:16:53 LV 168/-5, 31 09:17:38 LV 175/-7, 35 09:17:46 LVp 170/-5, 36 09:17:49 RM AIR REST 09:55:50 Signed By Elvis Zheng MD On 07/06/2021 10:56:59 Elvis Zheng MD
--- NOTE | 2021-07-06 13:59 | CRPHASE1_ITS ---
Patient Communication PHII Cardiac Rehab Discussed with Patient:: Yes Guide to Cardiac Rehab Given to Patient:: Yes Cardiac Rehab Facility Choice List Given to Patient:: Yes Choice Program [facility] PHII:: Communication Given to CR Anatomy Teacher:: Mary Zheng Refer Phase II Cardiac Rehab:: Yes Sessions:: 36 sessions - 3 days/wk, 12 weeks Cardiac Rehabilitation Info Cardiac Rehabilitation Program Information: Cardiac Rehabilitation is important for patients like you who are recovering from a heart problem. Cardiac rehabilitation programs are recognized as integral to the continued care of the patient with coronary heart disease. The cardiac rehabilitation program is designed to optimize a patient's physical, psychological, and social functioning. [facility] child care center assistant director work in cardiac rehabilitation programs and assist you with getting the treatments you need to get stronger and healthier - like exercise, healthy eating habits, and med ications. Cardiac rehabilitation has been show to help people with heart problems live longer and have better life enjoyment than people who do not go to cardiac rehabilitation. Please contact the Cardiac Rehabilitation Program at [facility] at in two weeks if you have not heard from them.
--- NOTE | 2021-07-06 14:01 | CRPH1.INSTRU ---
General Education CAD and cardiac anatomy and function:: Patient communicates acknowledgment Explanation of diagnoses and procedures:: Patient communicates acknowledgment Sign/Symptoms of ID:: Patient communicates acknowledgment Antiplatelet therapy: Patient communicates acknowledgment Proper use of NTG-SL: Patient communicates acknowledgment Emergency procedures and activation of EMS: Patient communicates acknowledgment Compliance of all prescribed medications: Patient communicates acknowledgment Smoking Patient Nicotine/Smoking Risk Factors Are:: Never smoked Dyslipidemia Patient Dyslipidemia Risk Factors Are:: Total Cholesterol, Triglycerides, HDL, LDL Recommendations Include:: Lipid profile not available Dyslipidemia Response Code:: Patient communicates acknowledgment Overweight/Obesity Patient Overweight/Obesity Risk Factors Are:: BMI Normal [24-29 & > 65 years old] Recommendations Include:: Weight loss of 5-10%, Reduced calorie diet, Exercise 5-7 times/week Overweight/Obesity:: Patient communicates acknowledgment Hypertension Recommendations Include:: Maintain BP <130/85 Hypertension:: Patient communicates acknowledgment Heart Disease Patient Heart Disease Risk Factors Are:: Family history of heart disease < 65 years old, Previous cardiac event Recommendations Include:: Educated family members of their risk, Educated family members of importance of prevention of heart disease Heart Disease Response Code:: Patient communicates acknowledgment Diabetes Patient Diabetes Risk Factors Are:: No documented hx of diabetes Sedentary Patient Sedentary Risk Factors Are:: Lack of regular exercise Recommendations Include:: Aerobic exercise 5-7 times/week for 20-30 minutes continuously, Benefits of regular exercise, Discussed home walking program, Monitored Outpatient Cardiac Rehab Sedentary Response Code:: Patient communicates acknowledgment
[2021-07-06 15:45] VITALS: BP 114/71; PULSE 69; RESP 17; TEMP 36.7; O2SAT 100
[2021-07-06 16:17] VITALS: PULSE 75
[2021-07-06 20:00] VITALS: PULSE 72
[2021-07-06 21:45] VITALS: BP 118/87; PULSE 74; RESP 16; TEMP 36.7; O2SAT 98
[2021-07-06] MEDS: Atorvastatin Calcium 40 MG Tablet PO (22:57)
[2021-07-07 03:45] VITALS: BP 126/68; PULSE 64; RESP 16; TEMP 37.1; O2SAT 96
[2021-07-07 04:00] VITALS: PULSE 65
[2021-07-07 06:41] LABS: Basophil# 0.03 X10^3/uL; Basophil% 0.4 % (0-1); Eosinophil# 0.09 X10^3/uL; Eosinophils% 1.2 % (0-5); Hematocrit 41.7 % (40-54); Hemoglobin 13.5 g/dL (13.0-16.5); Mean Corp Hgb Conc 32.4 g/dL (32-36); Mean Corpuscular Volume 92.7 fL (80-94); Mean Platelet Vol. 9.7 fl (6.2-12.0); Monocyte# 0.61 X10^3/uL; Monocyte% 7.9 % (0-10); NRBC Flagged by Analyzer 0 % (0-5); Neutrophil # 4.95 X10^3/uL (2.7-7.7); Neutrophil % 64.2 % (47-70); Platelet Count 187 K/mm3 (150-450); RBC Distribution Width CV 13.7 % (11.6-14.6); RBC Distribution Width SD 46.5 fl (35.1-43.9); White Blood Count 7.7 K/mm3 (4.4-11.0)
[2021-07-07 07:00] VITALS: PULSE 65
[2021-07-07 07:14] LABS: ALB/GLOB Ratio 1.1 RATIO (0.9-2.4); AST(SGOT) 21 U/L (15-37); Alanine Aminotransfer ALT/SGPT 23 U/L (16-61); Albumin, Serum 3.3 g/dL (3.2-5.0); Alkaline Phosphatase 76 U/L (45-117); Anion Gap 6 (5-15); BUN 21 mg/dL (7-18); BUN/Creat Ratio 22.5 RATIO (10-20); Calcium,Total 8.6 mg/dL (8.5-10.1); Chloride 109 mmol/L (98-107); Creatinine, Serum 0.93 mg/dL (0.70-1.30); EST Glomerular Filtration Rate 82 mL/min (>60); Est Glom Filt Rate - Afr Amer 100 mL/min (>60); Estimated Creatinine Clearance 69.21 ml/min; Globulin 2.9 g/dL (2.2-4.2); Glucose 95 mg/dL (74-106); Protein, Total 6.2 g/dL (6.4-8.2); Sodium Level 140 mmol/L (136-145)
[2021-07-07 07:37] VITALS: O2SAT 98
--- NOTE | 2021-07-07 08:42 | PCM.DC ---
Discharge Instructions Diet Discharge Diet: Low fat / Low cholesterol Activity Discharge Activity: May Drive (in 48 hours), May Shower (today) and May Take a Tub Bath (in 7 days) May resume sexual activity in: 1-2 weeks Weight Bearing Status: - (avoid heavy exertional activity x 2 weeks) Dressing / Incision Call your doctor if your incision/area has: Continuous Slow Oozing, Sudden Increased Bleeding, Increased Pain/ Swelling, Increased Redness, Foul Smelling Discharge and Swelling at the incision site Call your doctor if you observe: Fever of 101 or Higher, Shortness of breath, Fainting spells, Chest pain, Increased palpitations (irregular heartbeat) and Uncontrolled pain Remove Dressing in: 1 day Cleanse incision/area with: Soap & Water Follow Up Care Please Follow Up With: Sonu Carl MD When: [facility] office to arrange post hospital follow up visit Test Results: Test results from this visit will be discussed in further detail at your follow-up appointment, if applicable. Discharge Plan Admission Admit Date/Time: 07/06/21 11:34 Primary Reason for Your Visit: Abnormal Stress Test; Cardiac Catheterization Attending Provider: Sonu Carl Primary Care Provider: Benson Mahoney Discharge Orders/Prescriptions Prescriptions: New atorvastatin 40 mg Tablet 40 mg PO QHS Qty: 90 RF: 3 Continued aspirin [Adult Low Dose Aspirin] 81 mg tablet,delayed release (DR/EC) 81 mg PO DAILY RF: 0 multivitamin Tablet 1 tab PO DAILY RF: 0 clopidogrel [Plavix] 75 mg tablet 75 mg PO DAILY Qty: 30 RF: 1 turmeric root extract 500 mg capsule 500 mg PO DAILY RF: 0 ascorbic acid (vitamin C) 500 mg tablet 500 mg PO DAILY RF: 0 cholecalciferol (vitamin D3) 50 mcg (2,000 unit) tablet 50 mcg PO DAILY RF: 0 calcium carbonate [Calcium Antacid] 300 mg (750 mg) tablet,chewable 300 mg PO DAILY RF: 0 omega-3 fatty acids 1,000 mg capsule 1,000 mg PO DAILY RF: 0 coconut oil 1,000 mg capsule 1 mg PO DAILY RF: 0 Referrals / Follow Up: Benson Mahoney DO [Primary Care Provider] -
--- NOTE | 2021-07-07 08:48 | PCM.DC.SUM ---
Providers Date of Admission: 07/06/21 Primary Care Physician: Dr. 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 (2) Presence of stent in coronary artery: Status: Acute Code(s): Z95.5 - Presence of coronary angioplasty implant and graft (3) Nonrheumatic mitral (valve) prolapse: Status: Chronic Code(s): I34.1 - Nonrheumatic mitral (valve) prolapse (4) Mixed hyperlipidemia: Status: Chronic Code(s): E78.2 - Mixed hyperlipidemia (5) Pulmonary hypertension: Status: Acute Code(s): I27.20 - Pulmonary hypertension, unspecified Medications at Discharge Home Medications multivitamin 1 tab PO DAILY 12/20/19 aspirin 81 mg tablet,delayed release 81 mg PO DAILY 12/23/19 ascorbic acid (vitamin C) 500 mg tablet 500 mg PO DAILY 12/21/20 cholecalciferol (vitamin D3) 50 mcg (2,000 unit) tablet 50 mcg PO DAILY 12/21/20 turmeric root extract 500 mg capsule 500 mg PO DAILY 12/21/20 clopidogrel 75 mg tablet 75 mg PO DAILY #30 tab 01/07/21 calcium carbonate 300 mg (750 mg) chewable tablet 300 mg PO DAILY tab 06/30/21 coconut oil 1,000 mg capsule 1 mg PO DAILY cap 06/30/21 omega-3 fatty acids 1,000 mg capsule 1,000 mg PO DAILY 06/30/21 atorvastatin 40 mg PO QHS #90 tab 07/07/21 Hospital Course Operations None Procedures Cardiac catheterization and - (Cardiac Intervention: PTCA/EDITH) Summary of Care Provided Minutes Spent on Discharge: 45 Hospital Course: The patient presented to [facility] for concerns of chest discomfort/shortness of breath/dyspnea and an abnormal exercise tolerance test/imaging study for further evaluation with diagnostic cardiac catheterization. The patient underwent diagnostic cardiac catheterization via the right radial artery approach. He was diagnosed with angiographically significant appearing RCA disease. He subsequently underwent RCA PTCA/EDITH. 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 He was evaluated by the [facility] cardiac catheterization team and his hemorrhage was subsequently brought under control by reinitiating the post cardiac catheterization procedures. He was noted to have an element of ecchymoses. He was subsequently noted to have an element of ecchymoses. He was monitored overnight in the hospital and remained symptomatically and hemodynamically stable. His right upper extremity demonstrated his pulses to be 2+/4+ with no bruits with no obvious hematoma but with an area of mild ecchymoses. Status post review of his case he was felt to be stable for release home for continued outpatient cardiovascular follow-up. Physical Exam Const alert, oriented x3 and no apparent distress General Appearance: cooperative, comfortable, well kempt and well developed Orientation / Consciousness: awake, oriented to person, oriented to place and oriented to time HEENT normocephalic, head/scalp atraumatic and hearing grossly normal bilaterally Head and Scalp: normal to inspection, normocephalic and atraumatic Eyes PERRL, EOMs intact bilaterally and conjunctivae normal General Eye: normal appearance of both eyes Pupil: PERRL Neck full ROM and no JVD Chest Chest: symmetrical chest wall rise Resp normal air movement Auscultation: clear to auscultation bilaterally Cardio regular rate, regular rhythm, S1 normal heart sound and S2 normal heart sound Peripheral Pulses: radial pulses present right (No bruits) 2+ GI normal to inspection, nondistended, normoactive bowel sounds Extremity no pedal edema Extremity Narrative: Right forearm: Mild ecchymoses; no hematoma Skin General Skin Exam: ecchymosis Neuro oriented x3, moves all extremities, no focal motor deficits and no sensory deficits noted Weight / BMI Weight Weight: 180 lb Body Mass Index (BMI) 23.7 ABG / Lab / Microbiology Data Result Diagrams: 07/07/21 05:45 07/07/21 05:45 Laboratory: Laboratory Results - last 24 hr 07/07/21 05:45: WBC 7.7, RBC 4.50 L, Hgb 13.5, Hct 41.7, MCV 92.7, MCH 30.0, MCHC 32.4, RDW Std Deviation 46.5 H, RDW Coeff of Renate 13.7, Plt Count 187, MPV 9.7, Immature Gran % (Auto) 0.300, Neut % (Auto) 64.2, Lymph % (Auto) 26.0, [place] % (Auto) 7.9, Eos % (Auto) 1.2, Baso % (Auto) 0.4, Absolute Neuts (auto) 5.0, Absolute Lymphs (auto) 2.00, Nucleated RBC % 0 07/07/21 05:45: Sodium 140, Potassium 4.0, Chloride 109 H, Carbon Dioxide 25.0, Anion Gap 6, BUN 21 H, Creatinine 0.93, Estim Creat Clear Calc 69.21, Est GFR (MDRD) Af Amer 100, Est GFR (MDRD) Non-Af 82, BUN/Creatinine Ratio 22.5 H, Glucose 95, Calcium 8.6, Total Bilirubin 0.90, AST 21, ALT 23, Alkaline Phosphatase 76, Total Protein 6.2 L, Albumin 3.3, Globulin 2.9, Albumin/Globulin Ratio 1.1 D/C Instructions Discharge Diet: Low fat / Low cholesterol May resume sexual activity in: 1-2 weeks Weight Bearing Status: - (avoid heavy exertional activity x 2 weeks) Call your doctor if your incision/area has: Continuous Slow Oozing, Sudden Increased Bleeding, Increased Pain/ Swelling, Increased Redness, Foul Smelling Discharge and Swelling at the incision site Call your doctor if you observe: Fever of 101 or Higher, Shortness of breath, Fainting spells, Chest pain, Increased palpitations (irregular heartbeat) and Uncontrolled pain Cleanse incision/area with: Soap & Water Please Follow Up With: Sonu Carl MD When: [facility] office to arrange post hospital follow up visit Meaningful Use Info Meaningful Use Diagnoses (Choose all that apply): None applicable Discharge Plan Admission Admit Date/Time: 07/06/21 11:34 Primary Reason for Your Visit: Abnormal Stress Test; Cardiac Catheterization Attending Provider: Sonu Carl Primary Care Provider: Benson Mahoney Discharge Orders/Prescriptions Prescriptions: New atorvastatin 40 mg Tablet 40 mg PO QHS Qty: 90 RF: 3 Continued aspirin [Adult Low Dose Aspirin] 81 mg tablet,delayed release (DR/EC) 81 mg PO DAILY RF: 0 multivitamin Tablet 1 tab PO DAILY RF: 0 clopidogrel [Plavix] 75 mg tablet 75 mg PO DAILY Qty: 30 RF: 1 turmeric root extract 500 mg capsule 500 mg PO DAILY RF: 0 ascorbic acid (vitamin C) 500 mg tablet 500 mg PO DAILY RF: 0 cholecalciferol (vitamin D3) 50 mcg (2,000 unit) tablet 50 mcg PO DAILY RF: 0 calcium carbonate [Calcium Antacid] 300 mg (750 mg) tablet,chewable 300 mg PO DAILY RF: 0 omega-3 fatty acids 1,000 mg capsule 1,000 mg PO DAILY RF: 0 coconut oil 1,000 mg capsule 1 mg PO DAILY RF: 0 Referrals / Follow Up: Benson Mahoney DO [Primary Care Provider] -
[2021-07-07 08:50] VITALS: BP 117/73; PULSE 66; RESP 18; TEMP 36.4; O2SAT 98
[2021-07-07] MEDS: Calcium Carbonate 500 MG Tablet PO (08:54)
[2021-07-07] MEDS: Aspirin 81 MG TAB.CHEW PO (08:54)
[2021-07-07] MEDS: Ascorbic Acid 500 MG Tablet PO (08:55)
[2021-07-07] MEDS: Clopidogrel Bisulfate 75 MG Tablet PO (08:55)
[2021-07-07] MEDS: Cholecalciferol (VIT D3) 25 MCG TABLET (1,000 UNITS) 50 MCG PO (08:55)
[2021-07-07] MEDS: Multivitamins,Therapeutic Tablet 1 TABLET PO (08:55)
--- NOTE | 2021-07-07 10:00 | EKG12_ITS ---
Test Reason : AM EKG Blood Pressure : / mmHG Vent. Rate : 062 BPM Atrial Rate : 062 BPM P-R Int : 166 ms QRS Dur : 084 ms QT Int : 432 ms P-R-T Axes : 060 049 093 degrees QTc Int : 438 ms Normal sinus rhythm Nonspecific T wave abnormality Abnormal ECG Confirmed by AVA SALAZAR, SONU ([id number]), web content editor AGNIESZKA BERGER ([id number]) on 07/08/2021 12:49:49 PM Referred By: Sonu Escalante Confirmed By:SONU ESCALANTE MD
[2021-07-07 10:39] VITALS: BP 117/73; PULSE 66; RESP 18; TEMP 36.4; O2SAT 98
--- NOTE | 2021-07-07 11:26 | PHA.DC.MR ---
Pharmacy Service has performed discharge medication reconciliation for this patient. The patient's discharge medication list was reviewed for discrepancies and discrepancies were resolved. Home Medications multivitamin 1 tab PO DAILY 12/20/19 aspirin 81 mg tablet,delayed release 81 mg PO DAILY 12/23/19 ascorbic acid (vitamin C) 500 mg tablet 500 mg PO DAILY 12/21/20 cholecalciferol (vitamin D3) 50 mcg (2,000 unit) tablet 50 mcg PO DAILY 12/21/20 turmeric root extract 500 mg capsule 500 mg PO DAILY 12/21/20 clopidogrel 75 mg tablet 75 mg PO DAILY #30 tab 01/07/21 calcium carbonate 300 mg (750 mg) chewable tablet 300 mg PO DAILY tab 06/30/21 coconut oil 1,000 mg capsule 1 mg PO DAILY cap 06/30/21 omega-3 fatty acids 1,000 mg capsule 1,000 mg PO DAILY 06/30/21 atorvastatin 40 mg PO QHS #90 tab 07/07/21
== END 2021-07-07 09:00 | disposition home or self-care (01) ==
LOC: PCU 15:53
PROVIDERS: Specialist; Admitting Provider Internal Medicine Cardiovascular Disease; PCP Student in an Organized Health Care Education/Training Program; Referring Provider Internal Medicine Cardiovascular Disease; Visit Provider Internal Medicine Cardiovascular Disease
DX: I25.10 Atherosclerotic heart disease of native coronary artery without angina pectoris (principal); I27.20 Pulmonary hypertension, unspecified; I71.2 Thoracic aortic aneurysm, without rupture; R94.39 Abnormal result of other cardiovascular function study; E78.2 Mixed hyperlipidemia; Z95.5 Presence of coronary angioplasty implant and graft; Z79.02 Long term (current) use of antithrombotics/antiplatelets; Z79.82 Long term (current) use of aspirin; Z79.899 Other long term (current) drug therapy; R06.02 Shortness of breath; R07.2 Precordial pain; I34.1 Nonrheumatic mitral (valve) prolapse
CPT/HCPCS: 36415; 80048; 80053; 85025; 85610; 85730; 92928; 93005; 93458; 99152; 99153; 99218; C1874; J7030; Q9967; C1725; C1769; C1887; C1894; C9600; G0378

== ENCOUNTER 2022-08-28 08:57 | Emergency (ER) | payer MEDICARE, SELFPAY ==
[2022-08-28 09:00] VITALS: BP 100/74; PULSE 96; RESP 16; TEMP 36.3; O2SAT 98; BMI 24.1
--- NOTE | 2022-08-28 09:08 | EKG12_ITS ---
Test Reason : DIZZY Blood Pressure : / mmHG Vent. Rate : 085 BPM Atrial Rate : 085 BPM P-R Int : 184 ms QRS Dur : 070 ms QT Int : 354 ms P-R-T Axes : 071 001 074 degrees QTc Int : 421 ms Normal sinus rhythm Nonspecific ST abnormality Abnormal ECG Confirmed by SANTOSH SALAZAR, MIGNON ([id number]), commissioning editor AGNIESZKA BERGER ([id number]) on 08/30/2022 8:28:13 AM Referred By: CEDRICK Confirmed By:MIGNON FROST MD
[2022-08-28 09:17] LABS: Absolute Lymphocyte Count 2.47 X10^3/uL (0.83-4.51); Absolute Neutrophil Count 6.3 X10^3/uL (2.0-7.7); Basophil# 0.04 X10^3/uL; Basophil% 0.4 % (0-1); Eosinophil# 0.09 X10^3/uL; Eosinophils% 0.9 % (0-5); Hematocrit 47.9 % (40-54); Hemoglobin 15.8 g/dL (13.0-16.5); Lymphocyte # 2.47 X10^3/ul (0.83-4.51); Lymphocyte % 25.3 % (19-41); Mean Corpuscular Hgb 30.5 pg (27.0-32.0); Mean Corpuscular Volume 92.5 fL (80-94); Monocyte# 0.78 X10^3/uL; NRBC Flagged by Analyzer 0 % (0-5); Neutrophil # 6.33 X10^3/uL (2.7-7.7); Platelet Count 247 K/mm3 (150-450); RBC Distribution Width CV 13.6 % (11.6-14.6); RBC Distribution Width SD 46.2 fl (35.1-43.9); Red Blood Count 5.18 M/mm3 (4.6-6.2); White Blood Count 9.8 K/mm3 (4.4-11.0)
--- NOTE | 2022-08-28 09:22 | ED.VIS.CHEST ---
HPI History of Present Illness Chief Complaint: Dizziness Narrative Narrative: 82-year-old male presenting for evaluation of chest pain, shortness of breath, lightheadedness. These all began after he woke up this morning. Initially was lightheaded does not describe any vertiginous dizziness. He states he feels lightheaded still sitting in the bed. He started to have chest pain which lasts only a couple of seconds and was sharp in nature across his chest. This is now gone and has not come back. He states he still feels short of breath walking into the emergency room. Even when he is talking to me he speaking in full sentences and his vital signs are normal. Pulse ox 98% however he still says he feels short of breath. Patient states his pulse ox was off this morning any first was not registering a pulse ox and then it was in the 80s. After recheck it was in the 90s. Patient has not had fever or chills. Patient does not have body aches. He does have history of CAD, hyperlipidemia, mitral valve prolapse. Patient also states that he urinates 20 times a night. He denies any dysuria or hematuria. He is concerned he may be dehydrated because he urinates so much. He does state he drinks plenty of water and his urine is clear. He does not have any dysuria. Patient states he used to see Dr. Méndez who had tried a couple of medications to help him. The patient reports he did not like the first 1 but the second 1 was effective. He did not like some of the side effect so he stopped taking them. He has not seen anybody for urinary frequency since. He does state that he has a history of low sodium in the past. Patient also concerned he is dehydrated because he went for a 3 mile bike ride yesterday. He states he had been on a bike ride and very long time. He did not have any chest pain or shortness of breath while he was doing this. [facility] Medical History Abnormal stress test Atherosclerotic heart disease of [place] coronary artery without angina pectoris Mixed hyperlipidemia Nonrheumatic mitral (valve) prolapse Presence of stent in coronary artery (~07/06/21) Pulmonary hypertension Screening for intestinal cancer Home Medications multivitamin 1 tab PO DAILY 12/20/19 [History Last Taken Unknown] aspirin 81 mg tablet,delayed release (Adult Low Dose Aspirin) 81 mg PO DAILY 12/23/19 [History Last Taken 07/06/21] turmeric root extract 500 mg capsule 500 mg PO DAILY 12/21/20 [History Last Taken Unknown] calcium carbonate 300 mg (750 mg) chewable tablet (Calcium Antacid) 1,200 mg PO DAILY 01/06/22 [History Last Taken Unknown] magnesium 250 mg tablet 250 mg PO .COMPLEX 01/06/22 [History Last Taken Unknown] zinc 50 mg tablet 50 mg PO .COMPLEX 01/06/22 [History Last Taken Unknown] atorvastatin 20 mg tablet 20 mg PO DAILY dose has been decreased #90 tabs 08/12/22 [Rx Last Taken Unknown] Allergy/AdvReac Type Severity Reaction Status Date / Time cat dander Allergy Mild Other Verified 08/28/22 09:01 horse dander Allergy Mild Other Verified 08/28/22 09:01 house dust Allergy Mild Other Verified 08/28/22 09:01 mold Allergy Mild Other Verified 08/28/22 09:01 dog dander Allergy Congestion Verified 08/28/22 09:01 tree and shrub pollen Allergy Congestion Verified 08/28/22 09:01 Family History Mother Arthritis Alzheimer disease Father Cancer Surgical History H/O colonoscopy History of appendectomy History of laparoscopic cholecystectomy History of tonsillectomy History of transurethral resection of prostate Presence of coronary angioplasty implant and graft (~07/06/21) Status post knee surgery Social History Smoking Status: Never smoker alcohol intake: never substance use type: does not use caffeine: No ROS ROS ED Constitutional Constitutional ED: Denies chills, fever(s) or sweats Eyes Eyes: Denies blurry vision or change in vision ENT ENT ED: Denies ear pain or sore throat Cardiovascular Cardiovascular: Reports chest pain and other Details: Lightheadedness ; Denies palpitations or racing heartbeat Respiratory/Chest Respiratory/Chest: Reports dyspnea; Denies cough or sputum Gastrointestinal Gastrointestinal: Denies abdominal pain, constipation, diarrhea, nausea or vomiting Genitourinary Genitourinary ED: Reports urinary frequency; Denies dysuria or hematuria Musculoskeletal Musculoskeletal: Denies arthralgias, myalgias or neck pain Integumentary Denies abscess, Abrasions or rash Neurologic Neurologic: Denies headache(s), paresthesias or weakness Psychiatric Psychiatric: Denies anxiety, depression, suicidal ideation or suicidal thoughts Endocrine Endocrinology: Denies polydipsia or polyuria EXAM Physical Exam Const Vital Signs: 08/28/22 09:00 08/28/22 08:58 08/28/22 09:08 Temperature 97.4 F L Temperature Source Temporal Pulse Rate 96 Pulse Rate [Lying] Pulse Rate [Standing (for 1 minute prior to obtaining)] Respiratory Rate 16 Respiratory Pattern Normal Blood Pressure 100/74 Blood Pressure [Lying] Blood Pressure [Sitting (for 1 minute prior to obtaining)] Blood Pressure [Standing (for 1 minute prior to obtaining)] Blood Pressure Mean 82 Blood Pressure Mean [Lying] Blood Pressure Mean [Sitting (for 1 minute prior to obtaining)] Blood Pressure Mean [Standing (for 1 minute prior to obtaining)] Pulse Ox 98 Oxygen Delivery Method Room Air Room Air 08/28/22 09:30 Temperature Temperature Source Pulse Rate Pulse Rate [Lying] 79 Pulse Rate [Standing (for 1 minute prior to obtaining)] 98 Respiratory Rate Respiratory Pattern Blood Pressure Blood Pressure [Lying] 86/58 L Blood Pressure [Sitting (for 1 minute prior to obtaining)] 88/63 L Blood Pressure [Standing (for 1 minute prior to obtaining)] 86/56 L Blood Pressure Mean Blood Pressure Mean [Lying] 67 Blood Pressure Mean [Sitting (for 1 minute prior to obtaining)] 71 Blood Pressure Mean [Standing (for 1 minute prior to obtaining)] 66 Pulse Ox Oxygen Delivery Method Positive well nourished General Appearance ED: NAD; Negative for pallor HEENT Reports TM's clear and moist mucous membranes normocephalic and atraumatic Tympanic Membrane ED: Yes TM's clear Eyes PERRL Resp normal respiratory effort and clear to auscultation bilaterally Auscultation: Negative for rales, rhonchi or wheezes Cardio regular rate and regular rhythm GI normal to inspection, nondistended, normoactive bowel sounds Extremity normal to inspection Neuro oriented x3 and CN's II-XII intact bilaterally Sensorium / Orientation: awake and alert Psych mental status grossly normal Skin no rashes or lesions noted and no wounds General Skin Exam: Negative for jaundice or pallor Heart Score History: Slightly/Non-Suspicious ECG: Normal Age: </= 45 years Risk Factors: >/= 3 Risk Factors or History of CAD Score: 2 MDM MDM MDM Narrative Medical decision making narrative: 82-year-old male presenting with lightheadedness, a few seconds of chest pain, shortness of breath. Differential includes acute coronary syndrome, CHF, pneumonia, dehydration, electrolyte abnormalities. CBC to assess white blood cell count, hemoglobin, platelets, differential. BMP to assess renal function, electrolytes, glucose, anion gap. High-sensitivity troponin and EKG to assess for ischemia or dysrhythmia. Chest x-ray to rule out pneumonia. Patient given aspirin 324 mg given his chest pain and his history. CBC shows a normal white blood cell count of 9.8, hemoglobin hematocrit are stable. Platelets are normal. Creatinine elevated today at 1.35 which is high for him. He was given a liter of normal saline. Orthostatics were negative. Urinalysis was negative for infection. Sensitive troponin initially 12 and delta troponin 13. Chest x-ray on my interpretation shows no acute cardiopulmonary process. The radiologist interprets this and agrees. EKG sinus rhythm at a rate of 85 bpm without sign of ischemic change or ectopy on my interpretation. Ultimately patient's work-up was normal. I recommended that he drink plenty of water and follow-up with his PCP for recheck of his kidney function. Discharged in stable condition. Impression: 1 lightheadedness 2 chest pain Lab Data Labs: Laboratory Results - last 24 hr 08/28/22 08/28/22 08/28/22 09:05 10:43 11:20 WBC 9.8 RBC 5.18 Hgb 15.8 Hct 47.9 MCV 92.5 MCH 30.5 MCHC 33.0 RDW Std Deviation 46.2 H RDW Coeff of Renate 13.6 Plt Count 247 MPV 9.0 Immature Gran % (Auto) 0.400 Neut % (Auto) 65.0 Lymph % (Auto) 25.3 Holmes % (Auto) 8.0 Eos % (Auto) 0.9 Baso % (Auto) 0.4 Absolute Neuts (auto) 6.3 Absolute Lymphs (auto) 2.47 Nucleated RBC % 0 Sodium 138 Potassium 3.9 Chloride 106 Carbon Dioxide 28.0 Anion Gap 4 L BUN 17 Creatinine 1.35 H Estim Creat Clear Calc 46.85 Est GFR (MDRD) Af Amer 65 Est GFR (MDRD) Non-Af 54 L BUN/Creatinine Ratio 12.6 Glucose 143 H Calcium 9.3 Troponin I High Sens 12 13 Urine Color Yellow Urine Clarity Clear Urine pH 6.5 Ur Specific [place] 1.010 Urine Protein 30 H Urine Glucose (UA) Normal Urine Ketones Negative Urine Occult Blood 25 H Urine Nitrite Negative Urine Bilirubin Negative Urine Urobilinogen Normal Ur Leukocyte Esterase 25 H Urine RBC 0 SEEN Urine WBC 0 SEEN Ur Squamous Epith Cells 0 SEEN Urine Bacteria 0 SEEN Urine Mucus 0 SEEN Radiography Diagnostic Testing: Clinical Impression(s) from Imaging Studies Chest X-Ray 08/28/22 09:35 IMPRESSION: Normal x-ray examination of the chest. Electronically Signed: Anthony Mayen MD at 10:19 EDT Reading Location ID and State: [facility] / [place] Tel , Service support , Discharge Plan Triage Chief Complaint: Dizziness ED Provider: Sharif Funk Dx/Rx/DC Orders Instructions: ED Dehydration (Adult), ED Dizziness, Uncertain Cause Prescriptions: No Action aspirin [Adult Low Dose Aspirin] 81 mg tablet,delayed release (DR/EC) 81 mg PO DAILY multivitamin Tablet 1 tab PO DAILY turmeric root extract 500 mg capsule 500 mg PO DAILY calcium carbonate [Calcium Antacid] 300 mg (750 mg) tablet,chewable 1,200 mg PO DAILY zinc 50 mg tablet 50 mg PO .COMPLEX Rx Instructions: 50 mg orally QOD; magnesium 250 mg tablet 250 mg PO .COMPLEX Rx Instructions: 250 mg orally QOD; atorvastatin 20 mg tablet 20 mg PO DAILY Qty: 90 3RF Primary Care Provider: Benson Mahoney Referrals: Benson Mahoney DO [Primary Care Provider] - Disposition Disposition: Home, Self Care
[2022-08-28] MEDS: Aspirin 81 MG TAB.CHEW 324 MG PO (09:26)
[2022-08-28 09:30] VITALS: BP 86/56; BP 86/58; BP 88/63; PULSE 79; PULSE 98
[2022-08-28] MEDS: 0.9% Normal Saline 1,000 ML 999 ML IV (09:34)
--- NOTE | 2022-08-28 09:35 | RAD_ITS ---
STUDY: X-RAY CHEST REASON FOR EXAM: Male, 82 years old. chest pain TECHNIQUE: Single AP portable view of the chest. COMPARISON: None. FINDINGS: The lungs are clear and expanded. There is no demonstrated pleural abnormality. Normal size heart. Normal mediastinum and lindsey. Normal visualized pulmonary arteries. Normal visualized aortic arch and descending thoracic aorta. Normal visualized thoracic spine. Normal visualized ribs, clavicles, and shoulders. There is no demonstrated abnormality of the visualized soft tissue structures of the upper abdomen. RAD/Chest 1 View (Portable) IMPRESSION: Normal x-ray examination of the chest. Electronically Signed: Anthony Mayen MD at 10:19 EDT ,
[2022-08-28 09:36] LABS: Anion Gap 4 (5-15); BUN 17 mg/dL (7-18); BUN/Creat Ratio 12.6 RATIO (10-20); Calcium,Total 9.3 mg/dL (8.5-10.1); Chloride 106 mmol/L (98-107); Creatinine, Serum 1.35 mg/dL (0.70-1.30); EST Glomerular Filtration Rate 54 mL/min (>60); Est Glom Filt Rate - Afr Amer 65 mL/min (>60); Estimated Creatinine Clearance 46.85 ml/min; Glucose 143 mg/dL (74-106); Potassium 3.9 mmol/L (3.5-5.1); Sodium Level 138 mmol/L (136-145); Troponin-I HS (w/2H Reflex) 12 pg/mL (3.0-78.0)
[2022-08-28 10:50] LABS: Bacteria 0 SEEN /hpf (None Seen); Mucous, Urine 0 SEEN /hpf (<or=2+); Red Blood Cells-Urine 0 SEEN /hpf (0-5); Squamous Epithelial Cells - UA 0 SEEN /hpf (0-5); White Blood Cells 0 SEEN /hpf (0-5)
[2022-08-28 10:59] LABS: Color, Urine Yellow (Yellow); Glucose, Dipstick Normal (Normal); Ketone-Dipstick Negative (Negative); Leukocyte Esterase-Dipstick 25 /ul (Negative); Nitrite-Dipstick Negative (Negative); Occult Blood-Urine 25 /ul (Negative); Protein-Dipstick 30 mg/dl (Negative); Urine Bilirubin Dipstick Negative (Negative); Urine Clarity Clear (Clear); Urine Urobilinogen Normal (Normal); Urine pH 6.5 (5.0 - 8.0)
[2022-08-28 11:13] LABS: Reflex Troponin-HS? (from REC) Y
[2022-08-28 11:42] LABS: Troponin-I HS 13 pg/mL (3.0-78.0)
[2022-08-28 12:15] VITALS: BP 114/74; PULSE 78; RESP 16; O2SAT 98
== END 2022-08-28 12:18 | disposition home or self-care (01) ==
PROVIDERS: Emergency Provider Student in an Organized Health Care Education/Training Program; PCP Student in an Organized Health Care Education/Training Program; Visit Provider Student in an Organized Health Care Education/Training Program
DX: R42 Dizziness and giddiness (principal); R07.9 Chest pain, unspecified; I25.10 Atherosclerotic heart disease of native coronary artery without angina pectoris; E78.2 Mixed hyperlipidemia; Z95.5 Presence of coronary angioplasty implant and graft; Z79.82 Long term (current) use of aspirin; Z79.899 Other long term (current) drug therapy
CPT/HCPCS: 71045; 80048; 81001; 84484; 85025; 93005; 99285; A4216

== ENCOUNTER → 2022-11-08 | Outpatient (CLI) | payer MEDICARE, SELFPAY ==
--- NOTE | 2022-11-08 11:00 | PET_ITS ---
EXAMINATION: FDG PET-CT INDICATIONS: A 82-year-old male with history of pulmonary nodularity. COMPARISON EXAMINATION: None available INDEX LESION SIZE SUV INTERPRETATION Left lower lung, left lower lobe 17.6-mm 4.9 Fulfills quantitative criteria for viable neoplasm Bilateral thoracic perihilum 16.7-mm (largest) 8.6 (max) Fulfills quantitative criteria for viable neoplasm TECHNIQUE: Following the intravenous administration of 13.93 mCi of F-18 deoxyglucose via the right hand, multiplanar image acquisitions of the neck, chest, abdomen and pelvis to level of mid thigh, obtained at one hour post radiopharmaceutical administration contemporaneously interpreted with the current CT of the neck, chest, abdomen and pelvis, to level of mid thigh, dated 11/08/22 via coregistration reveals: BLOOD GLUCOSE LEVEL:?? 115 mg/dl?HEIGHT:?71 inches?WEIGHT: 177 lbs. FINDINGS: Head/Neck: There is no evidence of abnormal increased glucose metabolism in the pharyngeal mucosal space, parapharyngeal space, bilateral-lateral and anterior neck, hypopharynx and distribution of the laryngeal structures. The visualized portion of the cerebral cortical-subcortical structures demonstrate symmetric and preserved glucose metabolism. CHEST: Facilitated uptake is noted in the left lower lateral lung zone, left lower lobe. The calculated maximal standard uptake value is 4.9. The maximal axial diameter of the metabolic, morphologic abnormality is 17.6-mm. Enhanced labeled FDG uptake is noted in the bilateral thoracic perihilum. The calculated maximal standard uptake value is 8.6. The maximal axial diameter of the largest corresponding metabolic, morphologic abnormality is 16.7-mm. Facilitated uptake is defined in the descending thoracic aorta commensurate with activated leukocytes associated with atherosclerotic plaque formation. Pertinent chest CT findings are as follows. There is atherosclerotic calcification defined in the thoracic aorta without evidence of dilatation-aneurysm formation. Coronary arterial calcification is observed. A calcified density noted in the left upper anteromedial lung zone is ametabolic. Scattered bilateral axillary soft tissue densities are non-glucose avid. Abdomen/Pelvis: Normal physiologic distribution of the radiopharmaceutical is apparent in the hepatic (3.6) and splenic parenchyma, both renal units, bladder and visualized intestinal tract. Pertinent abdomen and pelvis CT findings are as follows. The gallbladder is surgically absent. Calcification is defined within the splenic parenchyma. There is atherosclerotic calcification defined in the abdominal aorta without evidence of dilatation-aneurysm formation. Pelvic arterial calcification is observed. Calcified phlebolith formation is encountered in the bilateral lower hemipelvis. The prostate gland is prominent in size. Skeletal: Degenerative changes are noted in the cervical, thoracic and lumbar spine without evidence of increased radiopharmaceutical concentration. PET/PET/CT Tumor Base -Thigh Init IMPRESSION: 1. 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 2. Increased radiopharmaceutical concentration defined in the left lower lung field, left lower lobe fulfills quantitative criteria for malignant transformation. Histopathologic analysis is recommended. (Patrick et al, Annals of Internal Medicine, 138:724, 2003). 3. Facilitated FDG uptake noted in the bilateral thoracic perihilum fulfills quantitative criteria for centrally located thoracic/mediastinal viable neoplasm. (Steve et al, Journal of Clinical Oncology 16:2142, 1998). Electronic Signature Anthony Garcia D.O. Accurate Quantification of SUVs for this report are calculated using the exclusive [employer], ([place]. Patent No. [phone] [place] patent [phone] ). Standardization and correction of the FDG SUV metric exclusively available with [employer] intellectual property, allow for vendor non-specific objective quantitative sequential FDG PET-CT comparison and otherwise unobtainable optimization of the sensitivity and specificity of the examination. [email or web address] Electronically Signed: Anthony Garcia DO at 22:25 EDT ,
== END | disposition home or self-care (01) ==
LOC: ONC 10:03
PROVIDERS: PCP Student in an Organized Health Care Education/Training Program; Referring Provider Internal Medicine Pulmonary Disease; Visit Provider Internal Medicine Pulmonary Disease
DX: R91.1 Solitary pulmonary nodule (principal)
CPT/HCPCS: 78815; A9552

== ENCOUNTER → 2022-12-05 | Outpatient (CLI) | payer MEDICARE, SELFPAY ==
[2022-12-05] VITALS (11 sets, daily range): BP systolic 116–155; BP diastolic 50–103; PULSE 61–73; RESP 12–23; TEMP 36.4; O2SAT 98–100; BMI 23.5
--- NOTE | 2022-12-05 | ASPIGT_PTH ---
PATIENT: DAX CAPELLAN LOC: CT U#:[id number] AGE/SX: 82/M ROOM: RE12/05/[address]: Dr. Lm Chua MD : 1940 BED: DIS: 12/05/2022 SPEC #: [id number] RECD: 12/05/22 09:51 STATUS: ALEX AMI #: [id number] DACIA: 12/05/22 00:[address]: Lm Chua V DEPT: SURGICAL PATHOLOGY RECD BY: Alverto Boucher ENTERED: 12/05/22 09:52 SP TYPE: ASP RAD OTHR DR: Dr. Benson Mahoney DO Tissues: Lung, NOS Procedures: FNA Specimen Adequacy Special Stain Group II Surgery Specimen Level IV Imprint (control) HEADER OPERATION: CT-guided lung biopsy PRE-OP DIAGNOSIS: Left lung nodule TISSUE SUBMITTED: Left lower lobe lung 20-gauge x5 MICROSCOPIC DIAGNOSIS Left lower lobe lung, CT-guided core biopsy: Non-small cell carcinoma, favor adenocarcinoma. See comment. KARINE:johnathan 12/06/2022 COMMENT The specimen is evaluated at the time of biopsy by Dr. Watts. Immediate Evaluation = Malignant cells present derived from non-small cell carcinoma. Immunohistochemistry ([id number]) supports the above diagnosis. IHC profile favors lung primary. Molecular studies on the tumor can be performed if clinically indicated. Please notify the laboratory if they are needed. Case has been reviewed in consultation with Dr. Peña who concurs with the above diagnosis. IDC:AM MICROSCOPIC DESCRIPTION Slides are reviewed. GROSS DESCRIPTION Received in fixative is one container labeled with the patient's name and designated left lung biopsy. The specimen consists of multiple irregular fragments of light pena soft tissue that in aggregate measure 0.5 x 0.1 x <0.1 cm. The specimen is totally submitted in one cassette. Two touch imprints are prepared at the time of core biopsy. / KARINE:jonhathan 12/05/2022 TC:0 [facility]: [id number], [id number]
--- NOTE | 2022-12-05 07:51 | CT_ITS ---
PROCEDURE: CT GUIDED CORE NEEDLE BIOPSY OF A left lower lobe LUNG LESION INDICATION: Male, 82 years old. PULMONARY NODULE PHYSICIAN: Dr. Shilpi Rodgers CONSENT: Written informed consent was obtained having explained the risks, benefits and alternatives in detail with the patient who accepted the risks and agreed to proceed. Laboratory review and clinical assessment was performed. CONSCIOUS SEDATION PROTOCOL: The Drugs used were: 2 mg Versed, IV., and 50 mcg Fentanyl, IV. The sedation time was: 18 minutes. The conscious sedation protocol was independently monitored. RADIATION DOSAGE (If Supplied By Facility): CTDIvol = ( 20 to ) mGy, DLP = ( 321.4 ) mGycm Individualized dose optimization techniques were used for this CT. TECHNIQUE: The patient was placed in the prone position. A noncontrast CT was performed to localize the lesion in the left lower lobe . The skin surface was prepped and draped in a sterile fashion. 1% lidocaine was used for local anesthesia. Using CT guidance, a 20-gauge coaxial biopsy device was advanced to the periphery of the lesion. A total of 5 core specimens were obtained. The specimens were placed in a formalin solution. A post procedure CT demonstrated no adverse sequelae or pneumothorax. The patient tolerated the procedure well without adverse event. A negative biopsy does not exclude malignancy. Further imaging or clinical followup based on patient condition and degree of clinical suspicion for malignancy. Suggest rebiopsy, if biopsy results do not match with clinical scenario. CT/Biopsy/Inj or Needle Placement IMPRESSION: 1. CT directed core needle biopsy of the left lower lobe pulmonary nodule using CT image guidance with image documentation as described. Pathology results are pending. 2. Conscious Sedation protocol utilized with independent monitoring. Electronically Signed: Kit Dobbins MD at 11:20 EDT ,
[2022-12-05 08:10] LABS: Absolute Lymphocyte Count 2.97 X10^3/uL (0.83-4.51); Absolute Neutrophil Count 3.3 X10^3/uL (2.0-7.7); Basophil# 0.04 X10^3/uL; Basophil% 0.6 % (0-1); Eosinophil# 0.15 X10^3/uL; Eosinophils% 2.1 % (0-5); Hemoglobin 13.9 g/dL (13.0-16.5); Lymphocyte # 2.97 X10^3/ul (0.83-4.51); Lymphocyte % 42.2 % (19-41); Mean Corp Hgb Conc 31.6 g/dL (32-36); Mean Corpuscular Hgb 29.9 pg (27.0-32.0); Mean Corpuscular Volume 94.6 fL (80-94); Mean Platelet Vol. 9.1 fl (6.2-12.0); Monocyte# 0.55 X10^3/uL; Monocyte% 7.8 % (0-10); NRBC Flagged by Analyzer 0 % (0-5); Neutrophil # 3.31 X10^3/uL (2.7-7.7); Neutrophil % 47.2 % (47-70); Platelet Count 254 K/mm3 (150-450); RBC Distribution Width CV 13.5 % (11.6-14.6); RBC Distribution Width SD 47.2 fl (35.1-43.9); Red Blood Count 4.65 M/mm3 (4.6-6.2)
[2022-12-05 08:12] LABS: International Normalized Ratio 1.1
[2022-12-05 08:13] LABS: Partial Thromboplast Time 31.7 Seconds (24.1-36.2)
[2022-12-05] MEDS: 0.9% Normal Saline (250mL Bag) 250 ML 15 ML IV (08:25)
[2022-12-05] MEDS: 0.9% Saline Lock 10 ML Syringe IV (08:25)
[2022-12-05] MEDS: Midazolam 2 MG/2 ML Syringe IV (09:07)
[2022-12-05] MEDS: fentaNYL 100 MCG/2 ML Ampul IV (09:09)
[2022-12-05] MEDS: Lidocaine 2% (20 ml mdv) 20 ML Vial INFILT (09:21)
--- NOTE | 2022-12-05 09:30 | IMM_PTH ---
PATIENT: DAX CAPELLAN LOC: CT U#:[id number] AGE/SX: 82/M ROOM: RE12/05/[address]: Dr. Lm Chua MD : 1940 BED: DIS: 12/05/2022 SPEC #: [id number] RECD: 12/05/22 14:00 STATUS: ALEX REQ #: [id number] DACIA: 12/05/22 09:[address]: Lm Chua V DEPT: IMMUNOHISTOCHEMISTRY RECD BY: Brandy Salinas ENTERED: 12/05/22 14:02 SP TYPE: IMMUNO OTHR DR: Dr. Benson Mahoney DO Tissues: Left lung, NOS Procedures: RCC (add) NAPSIN A (add) CK20 (add) CK5-6 (add) CK7 (add) CK8 (add) HEP PAR (add) TTF1 (add) Pankeratin (initial) P40 (add) PSAP (add) PHYSICIAN & [address] [id number] SPECIMEN INFORMATION: Tissue Source: Left lung Clinical Info: Left lung nodule Specimen Number: [id number] CPT code: 81116, 13803 x10 METHODOLOGY: Deparaffinized sections of prefer/formalin-fixed tissue or PAP/DQ stained slides are incubated with monoclonal/polyclonal antibodies/oligonucleotide probes. Localization is made via biotin free immunoperoxidase method. Appropriate controls are performed and reacted as expected. Results on target cell population are indicated in the following table: RESULTS: ANTIBODY / CLONE RESULT AE1-3 (AE1/AE3/PCK26) positive CK7 (OV-TL12/30) positive CK8 (80pwmdE80) positive CK20 (KS20.8) negative TTF-1 (8G7G3/1) positive Napsin A (Rabbit Polyclonal) positive HepPar (OCh1E5) negative RCC (PN-15) negative PSAP (PASE/4LJ) negative CK5-6 (D5 & 1684) negative P40 (BC28) negative These tests were developed and their performance characteristics determined by [facility]. They may not have been cleared or approved by the U.S. Food and Drug Administration. The FDA has determined that such clearance or approval is not necessary. The above immunohistochemical/dualISH markers are ordered and reviewed by the Pathologist. INTERPRETATION: Left lung, CT-guided core biopsy: Non-small cell carcinoma, favor adenocarcinoma. See comment. SJ:johnathan 12/06/2022 Comment: IHC profile favors lung primary. Case has been reviewed in consultation with Dr. Peña who concurs with the above diagnosis. IDC:[email or web address]
--- NOTE | 2022-12-05 09:40 | RAD_ITS ---
STUDY: X-RAY CHEST REASON FOR EXAM: Male, 82 years old. Immediate post lung bx -- Immediately post lung biopsy TECHNIQUE: AP inspiration and expiration views. COMPARISON: Comparison is made with prior study dated August 28, 2022. FINDINGS: No evidence of pneumothorax on the immediate post left lung biopsy radiographs. RAD/Chest Insp/Exp 2 View IMPRESSION: No evidence of pneumothorax on the immediate post left lung biopsy radiographs. Electronically Signed: Kit Dobbins MD at 10:01 EDT ,
--- NOTE | 2022-12-05 09:43 | PCM.OP.PRO ---
Procedure Report Date of Procedure: 12/05/22 Assessment & Plan Assessment/Plan (1) Pulmonary nodule: PLAN: PROCEDURE: CT GUIDED CORE NEEDLE BIOPSY OF A left lower lobe LUNG nodule INDICATION: Male, 82 years old. Left lower lobe lung nodule PROVIDER: KAJAL Gloria CONSENT: Written informed consent was obtained having explained the risks, benefits and alternatives in detail with the patient who accepted the risks and agreed to proceed. Laboratory review and clinical assessment was performed. PRE-PROCEDURE SEDATION ASSESSMENT: Current history and physical dictated by referring physician and reviewed. No clinical changes since date of exam. Patient has an ASA Class of 2. PROCEDURAL SEDATION PROTOCOL: The Drugs used were: 2 mg Versed, IV, and 50 mcg Fentanyl, IV. The sedation time was: 25 minutes, starting at 0907 and terminated at 0932. The procedural sedation protocol was independently monitored by the department nurse. RADIATION DOSAGE (If Supplied By Facility): CTDIvol = 21.78 mGy, DLP = 321.40 mGycm Individualized dose optimization techniques were used for this CT. TECHNIQUE: The patient was placed in the supine position. A noncontrast CT was performed to localize the lesion in the left lower lobe. The skin surface was prepped and draped in a sterile fashion. 2% lidocaine was used for local anesthesia. Using CT guidance, a 20-gauge coaxial biopsy device was advanced to the periphery of the lesion. A total of 5 core specimens were obtained. The specimens were placed in a formalin solution. A post procedure CT demonstrated no adverse sequelae or pneumothorax. The patient tolerated the procedure well without adverse event. A negative biopsy does not exclude malignancy. Further imaging or clinical followup based on patient condition and degree of clinical suspicion for malignancy. Suggest rebiopsy, if biopsy results do not match with clinical scenario. IMPRESSION: 1. CT directed core needle biopsy of left lower lobe pulmonary nodule using CT image guidance with image documentation as described. Pathology results are pending. 2. Procedural Sedation protocol utilized with independent monitoring by the department nurse. Procedures Radiology Radiology CT Procedures: 26212 Biopsy Lung
--- NOTE | 2022-12-05 11:45 | RAD_ITS ---
STUDY: X-RAY CHEST REASON FOR EXAM: Male, 82 years old. 2 hr post lung biopsy -- 2 hours post lung biopsy TECHNIQUE: AP inspiration and expiration views. COMPARISON: Comparison is made with prior study done earlier in the day. FINDINGS: The patient is status post left lung biopsy. No evidence of pneumothorax. RAD/Chest Insp/Exp 2 View IMPRESSION: No evidence of pneumothorax on the 2 hour post left lung biopsy radiographs. Electronically Signed: Kit Dobbins MD at 9:43 EDT ,
== END | disposition home or self-care (01) ==
PROVIDERS: Radiology Diagnostic Radiology; PCP Student in an Organized Health Care Education/Training Program; Referring Provider Internal Medicine Pulmonary Disease; Visit Provider Internal Medicine Pulmonary Disease
DX: C34.32 Malignant neoplasm of lower lobe, left bronchus or lung (principal)
CPT/HCPCS: 32408; 36415; 71046; 77012; 85025; 85610; 85730; 88172; 88305; 88313; 88341; 88342; 99156; J7050; C2613

== ENCOUNTER → 2024-11-21 | Outpatient (CLI) | payer MEDICARE, SELFPAY ==
--- NOTE | 2024-11-21 15:00 | CT_ITS ---
PROCEDURE: SOFT TISSUE NECK WITH CONTRAST 11/21/2024 REASON FOR EXAM: R NECK MASS TECHNIQUE: Procedure Code: CTNEW Modality: CT Procedure: SOFT TISSUE NECK WITH CONTRAST CONTRAST: VOLUME: mL One or more dose reduction techniques were used (e.g., Automated exposure control, adjustment of the mA and/or kV according to patient size, use of iterative reconstruction technique). FINDINGS: Dental amalgam causes streak artifact, limiting evaluation of the oral cavity. A skin surface marker is been placed over the right submandibular region. Deep to the skin surface marker, there is the normal-appearing right submandibular gland, which is symmetric with the left submandibular gland. The parapharyngeal soft tissues appear symmetric and unremarkable. The visualized airway is patent. The major salivary glands appear symmetric and unremarkable. No cervical lymphadenopathy. The hyoid bone, thyroid cartilage, and cricoid cartilage appear intact. The epiglottis and aryepiglottic folds appear unremarkable. The vocal cords are symmetric. A 7 mm low-density nodule is noted within the right lobe of the thyroid. Otherwise the thyroid gland appears unremarkable. The visualized lung apices are clear. The visualized paranasal sinuses and mastoid air cells are clear. No acute osseous abnormality. No acute fracture. Moderate cervical spondylosis. CT/Soft Tissue Neck WITH Contrast IMPRESSION: No CT abnormality in the anatomy deep to the skin surface marker. The normal-a ppearing right submandibular gland is deep to the skin surface marker. Reading Location: [id number]
== END | disposition home or self-care (01) ==
LOC: CT 14:59
PROVIDERS: PCP Student in an Organized Health Care Education/Training Program; Referring Provider Otolaryngology; Visit Provider Otolaryngology
DX: R22.1 Localized swelling, mass and lump, neck (principal)
CPT/HCPCS: 70491; Q9967